=== PATIENT | female | born 1940 | race Caucasian/White ===

== ENCOUNTER 2023-01-12 21:48 | Outpatient (REF) | payer MEDICARE, SELFPAY | END 2023-01-12 21:49 | disposition home or self-care (01) | LOC: LBN 21:48 | PROVIDERS: PCP Student in an Organized Health Care Education/Training Program; Visit Provider Physician Assistant | DX: N39.0 Urinary tract infection, site not specified (principal); R82.89 Other abnormal findings on cytological and histological examination of urine | CPT/HCPCS: 87086 ==

== ENCOUNTER 2023-04-03 16:03 | Outpatient (REF) | payer MEDICARE, SELFPAY ==
[2023-04-03 19:43] LABS: Bacteria Rare HPF (Negative); C & S Indicated? Yes; Casts Negative LPF (Negative); Crystals Mod Calcium Oxalate HPF (Negative); Epithelial Cells Rare HPF (Negative); Mucus Negative (Negative)
== END 2023-04-03 16:04 | disposition home or self-care (01) ==
LOC: LBN 16:03
PROVIDERS: PCP Student in an Organized Health Care Education/Training Program; Visit Provider Student in an Organized Health Care Education/Training Program
DX: N39.0 Urinary tract infection, site not specified (principal); R35.1 Nocturia; R53.83 Other fatigue
CPT/HCPCS: 81015; 87086

== ENCOUNTER → 2023-04-10 13:05 | Outpatient (BNVA) | payer MEDICARE, SELFPAY | PROVIDERS: PCP Student in an Organized Health Care Education/Training Program; Referring Provider Student in an Organized Health Care Education/Training Program; Visit Provider Nurse Practitioner Gerontology | DX: N32.81 Overactive bladder (principal); N39.46 Mixed incontinence; Z87.440 Personal history of urinary (tract) infections | CPT/HCPCS: 51798; 99205 ==

== ENCOUNTER 2023-05-09 14:03 | Outpatient (CLI) | payer MEDICARE, SELFPAY ==
[2023-05-09 14:13] VITALS: BP 150/65; PULSE 66; RESP 20; TEMP 36.7; O2SAT 96
--- NOTE | 2023-05-09 14:57 | DI.RAD_ITS ---
Exam(s) XR PAIN CLINIC LUMBAR SP 2V EXAM: XR PAIN CLINIC LUMBAR SP 2V CLINICAL HISTORY: DX: Lumbar spondylosis TECHNIQUE: 2D and realtime digital imaging was performed. CONTRAST MATERIAL: Refer to procedure report. COMPARISON: No exams were available for comparison FINDINGS: Fluoroscopy was provided for Dr. Mcdowell during the performance of a bilateral medial branch block. Pl ease refer to the procedure report for complete details. Ka,r=7.71 mGy IMPRESSION:
[2023-05-09 15:00] VITALS: BP 171/95; PULSE 82; RESP 13; O2SAT 100
--- NOTE | 2023-05-09 15:01 | PDOC.PAIN ---
Date of service: 05/09/23 Time of Service: 15:01 Pain Managment Procedure Note Procedure Note Procedure Note: PROCEDURE NOTE Bilateral Lumbar Medial Branch Blocks Date of Service: May 09, 2023 Patient: Candy Amaro Provider: Efren Mcdowell DO, MPH Candy Amaro has been [facility] to [facility] for lumbar medial branch blocks. Pre-operative diagnosis: Lumbar Spondylosis without Myelopathy Post-operative diagnosis: Same Pre-procedure pain: VAS= 6/10 COMMENTS: I previously evaluated the patient in the clinic. Candy? was interviewed and the medical records were reviewed. There were no medical, pharmacologic, radiographic or other structural contraindications to attempting fluoroscopically guided local anesthetic lumbar medial branch blocks. Risks and potential side effects were discussed. I also discussed the potential benefit(s) of the procedure with Candy, and voiced concerns were addressed. After Candy was completely informed about the procedure, the printed consent form was signed. A standard time-out procedure was performed. Candy was placed in the prone position on the fluoroscopy table. Automated blood pressure cuff and pulse oximeter were applied. The skin entry points for approaching the anatomic target points of the segmental medial branches of bilateral L3,L4,L5 were identified with fluoroscopy and marked. The skin at the target site area was thoroughly prepared with Chlorhexadine. The skin was then draped. Next, a 25 gauge 3.5 spinal needle was placed under fluoroscopic guidance down on to the target point (the articular pillar) for each respective segmental medial branch. Position was confirmed in A/P and lateral views. Aspiration revealed no blood or clear fluid. Next, 0.25ml of omnipaque 240 was injected at each level. No contrast following a vascular or neural pattern was visualized under continuous fluoroscopy. Next, 0.25 ml of preservative-free 0.5% bupivicaine was injected at each level. There was no unusual discomfort expressed by Candy. The needles were withdrawn without difficulty. (49 mls of Omnipaque was wasted) Candy was observed and was without hemodynamic, neurologic, or allergic reactions.? Fluoroscopic images were digitally archived. Provacative testing using the Modified Hoyt's facet loading test- Left side Right Side Directly before the block VAS (0-10) = 6/10 VAS (0-10) = 6/10 Five minutes after the block VAS (0-10) = 2/10 VAS (0-10) = 2/10 Percentage relief obtained with this diagnostic block 80% 80% Any improved physical functioning directly after the blocks? Able to move much better. Follow up plans and appointments were discussed with Candy. Candy was instructed to keep careful note of how the usual pain was modified by these injections. Specifically, to keep a pain diary for the next 4 hours using a numeric pain scale of 0-10 and report these results. Post procedure instruction was given as documented in the nursing documentation and having met discharge criteria, the patient was [facility]. Based on the medial branches blocked today, if they patient has adequate relief and we are able to proceed to radiofrequency ablation, the treatment should result in the denervation of the bilateral L4-L5 and L5-S1 facet joints. We would expect to denervate a total of 4 facets during the radiofrequency ablation. COMMENTS: No apparent complications. Post-procedure pain: VAS= 2/10 Candy will call back with 0-4 hour post-procedure pain scores. I personally performed the entire procedure. EFREN MCDOWELL DO, MPH ABPM&R-subspecialty board certification in Pain Medicine [facility] [facility]
[2023-05-09] MEDS: Bupivacaine 0.5% Pres-Free 10 ML VIAL IJ (15:03)
[2023-05-09] MEDS: Nerve Block Tray 1 EACH MC (15:03)
[2023-05-09] MEDS: Omnipaque 240 MG/ML 50 ML BTL IJ (15:04)
== END 2023-05-09 14:04 | disposition home or self-care (01) ==
LOC: PC 14:03
PROVIDERS: PCP Student in an Organized Health Care Education/Training Program; Visit Provider Preventive Medicine Occupational Medicine
DX: M54.50 Low back pain, unspecified (principal); M47.816 Spondylosis without myelopathy or radiculopathy, lumbar region
CPT/HCPCS: 123; 64493; 64494; 72100; 00123; J0665; Q9967

== ENCOUNTER → 2023-05-17 15:31 | Outpatient (BNVA) | payer MEDICARE, SELFPAY | PROVIDERS: PCP Student in an Organized Health Care Education/Training Program; Referring Provider Student in an Organized Health Care Education/Training Program; Visit Provider Nurse Practitioner Gerontology | DX: N39.46 Mixed incontinence (principal); N39.0 Urinary tract infection, site not specified; R30.0 Dysuria | CPT/HCPCS: 81003; 99213 ==

== ENCOUNTER 2023-05-17 16:05 | Outpatient (REF) | payer MEDICARE, SELFPAY | END 2023-05-17 16:06 | disposition home or self-care (01) | LOC: LBN 16:05 | PROVIDERS: PCP Student in an Organized Health Care Education/Training Program; Visit Provider Nurse Practitioner Gerontology | DX: R30.0 Dysuria (principal); N39.0 Urinary tract infection, site not specified; N39.46 Mixed incontinence; B96.22 Other specified Shiga toxin-producing Escherichia coli [E. coli] [STEC] as the cause of diseases classified elsewhere | CPT/HCPCS: 87077; 87086; 87186 ==

== ENCOUNTER → 2023-06-19 14:27 | Outpatient (BNVA) | payer MEDICARE, SELFPAY | PROVIDERS: PCP Student in an Organized Health Care Education/Training Program; Referring Provider Student in an Organized Health Care Education/Training Program; Visit Provider Nurse Practitioner Gerontology | DX: N39.46 Mixed incontinence (principal); Z87.440 Personal history of urinary (tract) infections | CPT/HCPCS: 51798; 81003; 99213 ==

== ENCOUNTER 2023-06-20 11:02 | Outpatient (CLI) | payer MEDICARE, SELFPAY ==
[2023-06-20 11:12] VITALS: BP 144/69; PULSE 65; RESP 20; TEMP 36.7; O2SAT 95
[2023-06-20 11:47] VITALS: BP 162/98; PULSE 80; RESP 13; O2SAT 99
--- NOTE | 2023-06-20 11:47 | DI.RAD_ITS ---
Exam(s) XR PAIN CLINIC LUMBAR SP 2V EXAM: XR PAIN CLINIC LUMBAR SP 2V CLINICAL HISTORY: DX: Lumbar spondylosis. TECHNIQUE: Fluoroscopy was provided for the referring physician for guidance with performing pain cl inic injection procedure. COMPARISON: No exams were available for comparison FINDINGS: Please see procedure note for details. Fluoro time: 44.7 seconds RADIATION DOSE DELIVERED: delvis Shepard=9.19 mGy
[2023-06-20] MEDS: Nerve Block Tray 1 EACH MC (11:49)
[2023-06-20] MEDS: Bupivacaine 0.5% Pres-Free 10 ML VIAL IJ (11:49)
[2023-06-20] MEDS: Omnipaque 240 MG/ML 50 ML BTL IJ (11:49)
--- NOTE | 2023-06-20 12:50 | PDOC.PAIN ---
Date of service: 06/20/23 Time of Service: 12:50 Pain Managment Procedure Note Procedure Note Procedure Note: PROCEDURE NOTE Bilateral Lumbar Medial Branch Blocks Date of Service: June 20, 2023 Patient: Candy Amaro Provider: Efren Mcdowell DO, MPH Candy Amaro has been referred to the [facility] for lumbar medial branch blocks. Pre-operative diagnosis: Lumbar Spondylosis without Myelopathy Post-operative diagnosis: Same Pre-procedure pain: VAS= 6/10 COMMENTS: She did very well with her first LMBB Candy? was interviewed and the medical records were reviewed. There were no medical, pharmacologic, radiographic or other structural contraindications to attempting fluoroscopically guided local anesthetic lumbar medial branch blocks. Risks and potential side effects were discussed. I also discussed the potential benefit(s) of the procedure with Candy, and voiced concerns were addressed. After Candy was completely informed about the procedure, the printed consent form was signed. A standard time-out procedure was performed. Candy was placed in the prone position on the fluoroscopy table. Automated blood pressure cuff and pulse oximeter were applied. The skin entry points for approaching the anatomic target points of the segmental medial branches of bilateral L3,L4,L5 were identified with fluoroscopy and marked. The skin at the target site area was thoroughly prepared with Chlorhexadine. The skin was then draped. Next, a 25 gauge 3.5 spinal needle was placed under fluoroscopic guidance down on to the target point (the articular pillar) for each respective segmental medial branch. Position was confirmed in A/P and lateral views. Aspiration revealed no blood or clear fluid. Next, 0.25ml of omnipaque 240 was injected at each level. No contrast following a vascular or neural pattern was visualized under continuous fluoroscopy. Next, 0.25 ml of preservative-free 0.5% bupivicaine was injected at each level. There was no unusual discomfort expressed by Candy. The needles were withdrawn without difficulty. (49 mls of Omnipaque was wasted) Candy was observed and was without hemodynamic, neurologic, or allergic reactions.? Fluoroscopic images were digitally archived. Provacative testing using the Modified Hoyt's facet loading test- Left side Right Side Directly before the block VAS (0-10) = 6/10 VAS (0-10) = 6/10 Five minutes after the block VAS (0-10) = 1/10 VAS (0-10) = 1/10 Percentage relief obtained with this diagnostic block 90% 90% Any improved physical functioning directly after the blocks? Able to move with little difficulty. Follow up plans and appointments were discussed with Candy. Candy was instructed to keep careful note of how the usual pain was modified by these injections. Specifically, to keep a pain diary for the next 4 hours using a numeric pain scale of 0-10 and report these results. Post procedure instruction was given as documented in the nursing documentation and having met discharge criteria, the patient was [facility] from the [facility]. Based on the medial branches blocked today, if they patient has adequate relief and we are able to proceed to radiofrequency ablation, the treatment should result in the denervation of the bilateral L4-L5 and L5-S1 facet joints. We would expect to denervate a total of 4 facets during the radiofrequency ablation. COMMENTS: No apparent complications. Post-procedure pain: VAS= 1/10 Candy will call back with 0-4 hour post-procedure pain scores. I personally performed the entire procedure. EFREN MCDOWELL DO, MPH ABPM&R-subspecialty board certification in Pain Medicine [facility] [facility]
== END 2023-06-20 11:03 | disposition home or self-care (01) ==
LOC: PC 11:02
PROVIDERS: PCP Student in an Organized Health Care Education/Training Program; Visit Provider Preventive Medicine Occupational Medicine
DX: M54.50 Low back pain, unspecified (principal); M47.816 Spondylosis without myelopathy or radiculopathy, lumbar region
CPT/HCPCS: 00123; 64493; 64494; 72100; J0665; Q9967

== ENCOUNTER 2023-07-11 08:12 | Outpatient (CLI) | payer MEDICARE, SELFPAY ==
[2023-07-11 08:29] VITALS: BP 148/68; PULSE 65; RESP 20; TEMP 36.7; O2SAT 98
--- NOTE | 2023-07-11 09:52 | PDOC.PAIN ---
Date of service: 07/11/23 Time of Service: 09:52 Pain Managment Procedure Note Procedure Note Procedure Note: PROCEDURE NOTE BILATERAL LUMBAR RADIOFREQUENCY ABLATION Date of Service: July 11, 2023 Patient:? Candy Amaro? Provider:? Efren Mcdowell DO, MPH Candy Amaro has been referred to the [facility] for Bilateral Lumbar Radiofrequency Ablation with the [employer] Machine.? Pre Operative Diagnosis: Lumbosacral Spondylosis without Myelopathy Post Operative Diagnosis: Same Pre procedure pain; VAS= 7/10 Comments: She did very well with her two LMBBs PROCEDURE: Radiofrequency Ablation of medial branches - bilateral L3, L4, L5 and lateral branches of bilateral S1. Candy?was interviewed and the medical record was reviewed.? There were no medical, pharmacologic, radiographic or other structural contraindications to attempting fluoroscopically guided BILATERAL Lumbar Radiofrequency Ablation.?Risks and expected side effects as well as potential benefit of the procedure were reviewed with Candy, and the patient's voiced concerns were addressed.? The printed consent form was signed.? Standard time-out procedure was performed. Candy was brought into the fluoroscopy suite and positioned into the prone position on the fluoroscopy table and allowed to adjust to a position of comfort. A grounding pad was placed on the left abdomen. The sterile field was prepared using chlorhexidine preparation of the skin and sterile draping. Local anesthesia superficial and deep was provided by local infiltration of 2% lidocaine. A 17g 100 mm radiofrequency introducer needle was placed to the planned anatomic targets guided with intermittent fluoroscopy with a perpendicular approach to terminally place at the junction of the superior articular process and the transverse process of the bilateral L4, L5, the base of the sacral ala on the bilateral for the L5 medial branch nerve and the area between base of the sacral ala to the S1 foramen bilaterally. The stylets were removed and radiofrequency probes with a 4mm active tip were then inserted. Needle tip position of the probes was verified in the AP, oblique, and lateral views. At each site, the medial branch nerve was stimulated at 2 Hz to a maximum 1-2 volts determined to finalize safe needle and electrode placement. The patient was awake and responsive during this portion of the procedure. Each target was anesthetized with 1-2 mL of 2 % Lidocaine for anesthesia for lesioning and then each target was lesioned at 80 degrees Celsius for 2 minutes and 30 seconds. Tissue impedances were noted to be between 250 and 500 Ohms. There was no unusual discomfort expressed by Candy. The needles were withdrawn without difficulty and bandages placed over the needle placement sites, the patient was observed and was without hemodynamic, neurologic, or allergic reactions. Fluoroscopic images were digitally archived. POST PROCEDURE EVALUATION: IMPRESSION: 1. Summary of procedure. Medication given is documented in the MAR. 2. Follow up plan: Candy to contact [facility] as needed.?This procedure may be repeated if the patient achieves at least 50% improvement in pain/function for at least 6 months. 3. Estimated Blood Loss: <5 mls 4. Fluoroscopy time: Documented in the EMR. Follow up plans and appointments were discussed with the Candy. Post procedure instruction was given as documented in nursing documentation and having met discharge criteria, Candy was discharged from the [facility]. COMMENTS: No apparent complications. Post-procedure pain: VAS= 0/10. I personally completed the entire procedure. EFREN MCDOWELL DO, MPH ABPM&R - Subspecialty board certification in Pain Medicine [facility] [facility]
--- NOTE | 2023-07-11 09:55 | DI.RAD_ITS ---
Exam(s) XR PAIN CLINIC LUMBAR SP 2V EXAM: XR PAIN CLINIC LUMBAR SP 2V CLINICAL HISTORY: Dx: Lumbar Spondylosis. TECHNIQUE: Fluoroscopy was provided for the referring physician for guidance with performing pain cl inic injection procedure. COMPARISON: No exams were available for comparison FINDINGS: Please see procedure note for details. Fluoro time: 72.8 seconds RADIATION DOSE DELIVERED: delvis Shepard=15.29 mGy
[2023-07-11] MEDS: Lactated Ringers 500 ML 80 ML IV (09:56)
[2023-07-11] MEDS: fentaNYL 100 MCG/2 ML VIAL IVP (09:56)
[2023-07-11] MEDS: Midazolam 2 MG/2 ML VIAL IVP (09:57)
[2023-07-11] MEDS: Bupivacaine 0.5% Pres-Free 10 ML VIAL IJ (09:57)
[2023-07-11] MEDS: methylPREDNISolone ACETATE 40 MG/ML VIAL IJ (09:58)
[2023-07-11] MEDS: Lidocaine 2% Pres-Free 5 ML VIAL IJ (09:58)
[2023-07-11 10:06] VITALS: BP 177/93; PULSE 82; RESP 13; O2SAT 97
[2023-07-11] MEDS: Nerve Block Tray 1 EACH MC (10:10)
== END 2023-07-11 08:13 | disposition home or self-care (01) ==
LOC: PC 08:13
PROVIDERS: PCP Student in an Organized Health Care Education/Training Program; Visit Provider Preventive Medicine Occupational Medicine
DX: M47.817 Spondylosis without myelopathy or radiculopathy, lumbosacral region (principal); M54.50 Low back pain, unspecified
CPT/HCPCS: 64635; 64636; 72100; J0665; J1010; J2250; J3010

== ENCOUNTER 2023-07-31 15:45 | Outpatient (REF) | payer MEDICARE, SELFPAY ==
[2023-07-31 19:06] LABS: Abs Immature Grans 0.04 10^3/uL (0.0-0.06); Absolute Basophil Count 0.08 10^3/uL (0.0-0.2); Absolute Eosinophil Count 0.54 10^3/uL (0.0-0.7); Absolute Monocyte Count 0.81 10^3/uL (0.1-0.8); Absolute Neutrophil Count 5.26 10^3/uL (1.2-6.7); Basophils % 0.8 %; Eosinophils % 5.7 %; HCT 40.2 % (36.0-46.0); HGB 12.5 g/dL (11.2-15.7); Immature Grans % 0.4 %; Lymphocytes % 29.4 %; MCHC 31.1 % (32.0-36.0); MCV 84 fL (80-95); MPV 9.9 fL (8.0-11.0); Monocytes % 8.5 %; Neutrophils % 55.2 %; Platelet Count 283 10^3/uL (130-400); RBC 4.81 10^6/uL (3.93-5.22); RDW 15.1 % (11.7-14.6); RDW-SD 45.9 fL; WBC 9.53 10^3/uL (4.4-10.8)
[2023-07-31 19:45] LABS: ALT 21 U/L (14-59); AST 15 U/L (15-37); Albumin 3.9 g/dL (3.4-5.0); Alkaline Phosphatase 81 U/L (46-116); Anion Gap 7.4 mmol/L (3-11); BUN 28 mg/dL (7-18); Bilirubin, Total 0.4 mg/dL (0.2-1.0); CO2 29.6 mmol/L (21.0-32.0); CREATININE 0.8 mg/dL (0.55-1.02); Calcium 9.4 mg/dL (8.5-10.1); Chloride 105 mmol/L (98-107); Estimated GFR 73.06 (mL/min/1.73m2); Glucose 110 mg/dL (74-106); Potassium 4.7 mmol/L (3.5-5.1); Sodium 142 mmol/L (136-145); TSH (W/Ref FT4) 1.46 uIU/mL (0.36-3.74); Vitamin B12 1088 pg/mL (193-986)
[2023-07-31 20:42] LABS: Vitamin D 25 Total 56.4 ng/mL (30-100)
== END 2023-07-31 15:46 | disposition home or self-care (01) ==
LOC: LBN 15:45
PROVIDERS: PCP Student in an Organized Health Care Education/Training Program; Visit Provider Nurse Practitioner
DX: R31.29 Other microscopic hematuria (principal); E55.9 Vitamin D deficiency, unspecified; R53.83 Other fatigue; B96.89 Other specified bacterial agents as the cause of diseases classified elsewhere; B96.20 Unspecified Escherichia coli [E. coli] as the cause of diseases classified elsewhere
CPT/HCPCS: 80053; 82306; 87077; 82607; 84443; 85025; 87086; 87186

== ENCOUNTER → 2023-08-08 08:02 | Outpatient (BNVA) | payer MEDICARE, SELFPAY | PROVIDERS: PCP Student in an Organized Health Care Education/Training Program; Referring Provider Student in an Organized Health Care Education/Training Program; Visit Provider Nurse Practitioner Gerontology | DX: N39.46 Mixed incontinence (principal) | CPT/HCPCS: 51798; 81003; 99213 ==

== ENCOUNTER → 2023-09-03 03:49 | Outpatient (CLI) | payer MEDICARE, SELFPAY ==
--- NOTE | 2023-09-03 11:42 | DI.RAD_ITS ---
Exam(s) XR RIBS LT W PA LAT CHEST EXAM: XR RIBS LT W PA LAT CHEST CLINICAL HISTORY: ? thoracic vert COMPRESSION or rib injury,lt pain around rib 10,back pain. TECHNIQUE: 2D digital imaging was performed. COMPARISON: No exams were available for comparison FINDINGS: Left rib cage-four views: There are no liver rib fractures identified. No osseous lesions. Chest x-ray: 2 views Heart size normal mediastinum is not widened. No pneumothorax. No obvious fractures. There is interposition of colon hepatic flexure between the hemidiaphragm and liver. This accounts for the air subjacent to the right hemidiaphragm and slight e levation of the right hemidiaphragm. There are no infiltrates nor pleural effusions. IMPRESSION: No acute pulmonary findings. DATA REPOSITORY: RADIATION DOSE DELIVERED:
--- NOTE | 2023-09-03 11:42 | DI.RAD_ITS ---
Exam(s) XR THORACIC SPINE COMPLETE EXAM: XR THORACIC SPINE COMPLETE CLINICAL HISTORY: ? thoracic vert compression,back pain,m54.9. TECHNIQUE: 2D digital imaging was performed. COMPARISON: No exams were available for comparison FINDINGS: 3 views There is no evidence of compression fracture nor listhesis. No scoliosis. No abnormal widening of t he paraspinal lines. No obvious osseous lesions in the thoracic vertebrae. IMPRESSION: No acute osseous findings in the thoracic vertebrae. DATA REPOSITORY: RADIATION DOSE DELIVERED:
== END ==
PROVIDERS: PCP Student in an Organized Health Care Education/Training Program; Visit Provider Student in an Organized Health Care Education/Training Program
DX: M48.04 Spinal stenosis, thoracic region; M51.36 Other intervertebral disc degeneration, lumbar region; Z98.890 Other specified postprocedural states
CPT/HCPCS: 71046; 71100; 72072

== ENCOUNTER → 2023-10-19 00:12 | Outpatient (CLI) | payer MEDICARE, SELFPAY ==
--- NOTE | 2023-10-19 13:30 | DI.US_ITS ---
APPROVED REPORT EXAM: Comprehensive 2D, Doppler, and color-flow Echocardiogram Patient Location: Out-Patient Distribution Analyst: Reece Sandhu RDCS (AE) Indications: Evaluate heart function, edema, fatigue Conclusion Normal left ventricular wall thickness and chamber size. Ejection fraction is 55%. Wall motion is n ormal Normal right ventricular size and function Both atria are normal in size There is no structural or hemodynamically significant valvular disease Estimated right ventricular systolic pressure is 30 mmHg Wall motion Left Ventricle The left ventricle is normal size. The left ventricular systolic function is normal. The left ventric ular ejection fraction is within the normal range. There is normal left ventricular wall thickness. T here is normal LV segmental wall motion. There is no ventricular septal defect visualized. LVEF is 55 %. Right Ventricle The right ventricle is normal size. The right ventricular systolic function is normal. Atria The left atrium size is normal. The right atrium size is normal. The interatrial septum is intact wit h no evidence for an atrial septal defect. Aortic Valve The aortic valve is not well visualized. There is no aortic valvular stenosis. No aortic regurgitatio n is present. Mitral Valve The mitral valve is normal in structure. No evidence of mitral valve stenosis. Trace mitral regurgita tion. Tricuspid Valve The tricuspid valve is normal in structure. There is no tricuspid valve stenosis. Mild tricuspid regu rgitation. The RVSP is 30.3 mmHg. Pulmonic Valve Pulmonic valve is not well visualized. Great Vessels The aortic root is normal in size. The ascending aorta is normal in size. Aortic arch is normal in ca liber. IVC is normal in size and collapses >50% with inspiration. Pericardium There is no pericardial effusion. 2D Dimensions IVSD d PLAX 0.67 cm F: 0.6-1.0 Ao Root d 2.67 cm F: 2.7 - 3.3 LVPW d PLAX 0.69 cm F: 0.6 - 1.0 Ao Asc Diam d 2.43 cm F: 2.3 - 3.1 LVID d PLAX 4.08 cm F: 3.8 - 5.2 LVDs 2.98 cm F: 2.2 - 3.5 LV EF Teichholz 53.1 % FS 27.00 % LV EDV (Teich) 73.2 mL LV ESV (Teich) 34.3 mL Stroke Vol Index (Teich) 23.70 M-Mode TAPSE 2.04 cm (M/F) >1.7 Auto EF LV EDV A4C 54.4 mL LV EDV A2C 74.4 mL LV EDV BP 63.3 mL LV ESV A4C 26.0 mL LV ESV A2C 35.1 mL LV ESV BP 29.2 mL LVEF(%) A4C 52.1 % LVEF(%) A2C 52.9 % LVEF(%) BP 53.8 % LV SV A4C 28.3 ml LV SV A2C 39.4 ml LV SV BP 34.1 ml LV CO A4C 2.2 L/min LV CO A2C 3.0 L/min LV CO BP 2.6 L/min HR A4C 76.43 BPM HR A2C 75.47 BPM LV EDV Index (BP) LA Volume LA Length A4C 3.0 cm LA Length A2C 3.4 cm LA Area A4C s 6.47 cm2 LA Area A2C s 8.15 cm2 LA Vol A4C A-L 11.98 mL LA Vol A2C A-L 16.57 mL LA Vol Biplane A-L 15.1 mL LA Vol/BSA A4C A-L LA Vol/BSA A2C A-L LA Vol/BSA BP A-L 9.2 mL/m2 LA Vol A4C MOD 11.5 mL LA Vol A2C MOD 14.6 mL LA Vol BP MOD 13.8 mL RA Volume RA Area A4C 7.9 cm2 RA ESV A4C (A-L) 14.3mL RA Vol/BSA A4C A-L RA Length A4C 3.7 cm RA ESV A4C (MOD) 13.8mL LV Diastology MV E' medial 0.080 (>0.07 m/s) MV E Vmax 0.62 (0.4-1.3 m/s) MV E/E' MED 7.68 (<14) MV A Vmax 1.20 (0.4-1.3 m/s) MV E' lateral 0.077 (>0.1 m/s) E/A Ratio 0.5 MV E/E' LAT 8.00 (<14) MV E' Average 0.079 m/s MV E/E'(average) 7.84 Aortic Valve AoV Vmax 1.15 m/s LVOT Vmax 0.90 m/s AoV Peak Grad 5.3 mmHg LVOT Peak Grad 3.3 mmHg AoV Area (Vmax) 2.04 cm2 LVOT VTI 0.194 m AoV VTI 0.253 m LVOT Mean Grad 1.7 mmHg AoV Mean Christofer. 0.83 m/s LVOT SV 50.51 mL AoV Mean Grad 3.1 mmHg LVOT Diam s 1.80 cm AoV Area (VTI) 2.00 cm2 AV Regurg Peak Gr. 5.31 mmHg Velocity Ratio 0.78 Mitral Valve MV DT 339 (160-240 msec) MV Vmax TIPS 1.12 m/s MV Mean Grad 1.7 (<2mmHg) MV VTI 0.288 m Tricuspid Valve RA Pressure 3.00 mmHg TR Vmax 2.61 m/s TR Peak Grad 27.2 mmHg RVSP (TR) 30.3 mmHg
== END ==
PROVIDERS: PCP Student in an Organized Health Care Education/Training Program; Visit Provider Student in an Organized Health Care Education/Training Program
DX: R60.9 Edema, unspecified (principal); R53.83 Other fatigue
CPT/HCPCS: 93306

== ENCOUNTER 2023-11-21 01:45 | Outpatient (CLI) | payer MEDICARE, SELFPAY ==
--- NOTE | 2023-11-21 07:30 | DI.MAMMO_ITS ---
Exam(s) MG MAMMO SCREENING 60 MIN DUR EXAM: MG MAMMO SCREENING 60 MIN DUR CLINICAL HISTORY: breast cancer screening,z12.31. TECHNIQUE: Bilateral full field digital CC and MLO mammographic images were obtained with 3D tomosyn thesis and utilizing computer aided detection (CAD). COMPARISON: None. This patient cannot remember where her prior mammograms more performed. FINDINGS: Fibroglandular tissue pattern is moderately dense There are no significant radiograph findings in left breast. Benign-appearing benign-appearing nodule in the right breast are noted. There is no significant architectural distortion nor skin thickening-retraction. IMPRESSION: Benign findings. No radiographic evidence of malignancy. BI-RADS Category 2 - Benign Findings Breast Density - Category C - Heterogeneously dense Breast density Category C or D implies that the patient has dense breast tissue. Dense breast tissue can make it harder to find cancer on a mammogram. Dense breast tissue is also associated with an incr eased risk of breast cancer. This information about the result of the mammogram report was provided to the patient to raise their awareness. Use this report when you speak with the patient about their risks for breast cancer, which includes their family history. At that time, you may recommend additional screening tests (Ultrasoun d or MRI) as these tests may add significant information. A negative radiographic report should not delay biopsy if a dominant or clinically suspicious mass is present. Up to ten percent of cancers are not identified on mammography. A negative report may reinforce clinical impression. Adenosis and dense breasts may obscure an underlying neoplasm. False positive reports average 6 to 10%. Patient will receive a letter notifying them of these results.
== END 2023-11-21 02:05 ==
LOC: DI 01:45
PROVIDERS: PCP Student in an Organized Health Care Education/Training Program; Visit Provider Student in an Organized Health Care Education/Training Program
DX: Z12.31 Encounter for screening mammogram for malignant neoplasm of breast (principal)
CPT/HCPCS: 77063; 77067

== ENCOUNTER → 2023-11-28 13:13 | Outpatient (BNVA) | payer MEDICARE, SELFPAY | PROVIDERS: PCP Student in an Organized Health Care Education/Training Program; Visit Provider Nurse Practitioner Gerontology | DX: N39.46 Mixed incontinence (principal) | CPT/HCPCS: 51798; 99213 ==

== ENCOUNTER 2023-12-04 14:05 | Outpatient (CLI) | payer MEDICARE, SELFPAY ==
--- NOTE | 2023-12-04 14:00 | RT.EKG_ITS ---
APPROVED REPORT Exam: Resting ECG Reason for Exam: HTN Patient Location: O HR:68 bpm ECG Measurements Heart Rate 68 AXIS AL 151 P 39 QRSd 134 QRS -29 QT 411 T 95 QTc 438 Conclusion Sinus rhythm...normal P axis, V-rate 50- 99 Left bundle branch block...QRSd>120, broad/notched R
== END 2023-12-04 14:06 | disposition home or self-care (01) ==
LOC: DI.CARD 14:10
PROVIDERS: PCP Student in an Organized Health Care Education/Training Program; Referring Provider Student in an Organized Health Care Education/Training Program; Visit Provider Internal Medicine Cardiovascular Disease
DX: I44.7 Left bundle-branch block, unspecified (principal); I10 Essential (primary) hypertension
CPT/HCPCS: 93010

== ENCOUNTER → 2023-12-04 14:05 | Outpatient (BNVA) | payer MEDICARE, SELFPAY | PROVIDERS: PCP Student in an Organized Health Care Education/Training Program; Referring Provider Student in an Organized Health Care Education/Training Program; Visit Provider Internal Medicine Cardiovascular Disease | DX: I44.7 Left bundle-branch block, unspecified (principal); I10 Essential (primary) hypertension | CPT/HCPCS: 93005; 99214 ==

== ENCOUNTER 2023-12-13 14:56 | Outpatient (REF) | payer MEDICARE, SELFPAY | END 2023-12-13 14:57 | disposition home or self-care (01) | LOC: LBN 14:56 | PROVIDERS: PCP Student in an Organized Health Care Education/Training Program; Visit Provider Nurse Practitioner Family | DX: R82.998 Other abnormal findings in urine (principal); R31.9 Hematuria, unspecified; R35.0 Frequency of micturition; B96.20 Unspecified Escherichia coli [E. coli] as the cause of diseases classified elsewhere | CPT/HCPCS: 87077; 87086; 87186 ==

== ENCOUNTER → 2024-01-17 15:25 | Outpatient (BNVA) | payer MEDICARE, SELFPAY | PROVIDERS: PCP Student in an Organized Health Care Education/Training Program; Referring Provider Student in an Organized Health Care Education/Training Program; Visit Provider Nurse Practitioner Gerontology | DX: N39.46 Mixed incontinence (principal); R35.0 Frequency of micturition; Z87.440 Personal history of urinary (tract) infections | CPT/HCPCS: 51798; 81003; 99214 ==

== ENCOUNTER 2024-01-17 17:07 | Outpatient (REF) | payer MEDICARE, SELFPAY | END 2024-01-17 17:08 | disposition home or self-care (01) | LOC: LBN 17:07 | PROVIDERS: PCP Student in an Organized Health Care Education/Training Program; Visit Provider Nurse Practitioner Gerontology | DX: Z87.440 Personal history of urinary (tract) infections (principal); R39.9 Unspecified symptoms and signs involving the genitourinary system; R35.0 Frequency of micturition | CPT/HCPCS: 87077; 87086; 87186 ==

== ENCOUNTER → 2024-02-06 09:03 | Outpatient (BNVA) | payer MEDICARE, SELFPAY | PROVIDERS: PCP Student in an Organized Health Care Education/Training Program; Referring Provider Student in an Organized Health Care Education/Training Program; Visit Provider Nurse Practitioner Gerontology | DX: R35.0 Frequency of micturition (principal); N32.81 Overactive bladder; N39.0 Urinary tract infection, site not specified | CPT/HCPCS: 99442 ==

== ENCOUNTER → 2024-02-12 14:05 | Outpatient (BNVA) | payer MEDICARE, SELFPAY | PROVIDERS: PCP Student in an Organized Health Care Education/Training Program; Referring Provider Nurse Practitioner Family; Visit Provider Nurse Practitioner Adult Health | DX: R41.89 Other symptoms and signs involving cognitive functions and awareness (principal) | CPT/HCPCS: 99215 ==

== ENCOUNTER 2024-03-03 01:36 | Outpatient (CLI) | payer MEDICARE, SELFPAY ==
--- NOTE | 2024-03-03 06:00 | DI.MRI_ITS ---
Exam(s) MR BRAIN WO EXAM: MR BRAIN WO CLINICAL HISTORY: memory changes,cognitive impairment,r41.89 TECHNIQUE: Multiplanar multisequence MRI of the brain was performed. COMPARISON: None FINDINGS: CEREBRAL PARENCHYMA: There is no evidence of intracranial hemorrhage, mass effect, or shift of midline structures. There are no extra-axial fluid collections. Lateral ventricles are slightly prominent in size. There is no significant focal signal abnormality in the cerebellar hemispheres nor within the sierra, m idbrain, and thalami. There is patchy FLAIR bright signal abnormality the Ruth Ann in supra ventricular white matter not associ ated with hemorrhage, surrounding edema, nor restricted diffusion and consistent with chronic small v essel disease. There is no significant focal signal abnormality evident on diffusion imaging to suggest acute ischem ic event. PITUITARY GLAND: No mass nor parasellar abnormality. No obvious abnormality in the cavernous sinuses. FLOW VOIDS: The expected flow void are noted. No evidence of obvious aneurysm nor obvious vascular ma lformation. PARANASAL SINUSES: The visualized paranasal sinuses appear unremarkable. No obvious finding ORBITS: No obvious acute findings. IMPRESSION: There is periventricular signal abnormality consistent with chronic small vessel disease. No evidenc e of acute infarct. Slightly prominent size of the lateral ventricles, possibly commensurate with size of the overlying c ortical sulci. Correlation with any clinical signs of normal pressure hydrocephalus recommend. DATA REPOSITORY:
== END 2024-03-03 01:56 ==
LOC: DI 01:36
PROVIDERS: PCP Student in an Organized Health Care Education/Training Program; Visit Provider Nurse Practitioner Adult Health
DX: I25.85 Chronic coronary microvascular dysfunction (principal)
CPT/HCPCS: 70551

== ENCOUNTER → 2024-03-24 10:30 | Outpatient (BNVA) | payer MEDICARE, SELFPAY | PROVIDERS: PCP Student in an Organized Health Care Education/Training Program; Referring Provider Student in an Organized Health Care Education/Training Program; Visit Provider Nurse Practitioner Gerontology | DX: N39.46 Mixed incontinence (principal); Z87.440 Personal history of urinary (tract) infections; R31.29 Other microscopic hematuria; R39.9 Unspecified symptoms and signs involving the genitourinary system | CPT/HCPCS: 51798; 81003; 99214 ==

== ENCOUNTER 2024-04-01 01:15 | Outpatient (CLI) | payer MEDICARE, SELFPAY ==
--- NOTE | 2024-04-01 07:30 | DI.MRI_ITS ---
Exam(s) MR CERVICAL SPINE WO EXAM: MR CERVICAL SPINE WO CLINICAL HISTORY: ? cervical stenosis on brain MRI, balance issues,M48.02,R26.89 TECHNIQUE: Multiplanar multisequence MRI of the cervical spine was performed without intravenous con trast. COMPARISON: There no prior plain films of the cervical spine available at time of this MRI interpret ation FINDINGS: CERVICOMEDULLARY JUNCTION: Intact with no evidence of cerebellar tonsillar ectopia. No obvious abnor mality of the odontoid process. No evidence of Chiari 1 malformation. CERVICAL SPINAL CORD: There is reversal of the normal curvature of the spinal column and there is mul tilevel spinal canal stenosis as described below. There is no evidence of focal cord atrophy nor foc al cord swelling nor syringomyelia. There is no prominent abnormal signal within the cervical spinal cord evident on the sagittal T2 images. OSSEOUS:Reversal normal curvature. No abnormal marrow signal to suggest significant osseous lesions. Multilevel listhesis as described below INDIVIDUAL LEVELS: C2-3: Normal disc height. No disc herniation or central canal stenosis. There are moderate degenera tive changes in the right facet joint but without significant right-sided foraminal stenosis. There are minimal degenerative changes in the left facet joint without evidence of foraminal stenosis on th e left side. C3-4: There is mild anterolisthesis of C3 upon C4, approximately 2 mm. There is relative preservatio n of disc height at this level. However, posteriorly there is annular bulging and a central subligam entous disc protrusion which extends posteriorly 2 mm and extends cephalad behind the C3 vertebral uvaldo dy for a distance of 4 mm.This disc protrusion effaces the anterior thecal sac and contacts the anter ior aspect of the cervical spinal cord at this level. This results in central canal measurement of 8 mm/mild central canal stenosis. There are advanced degenerative changes in both facet joints at this level, this causative for the mi ld anterior slippage of C3 upon C4. There is Luschka joint osteophyte-disc complex at the level the exiting left neural foramen, this resulting in moderate left-sided foraminal stenosis. There is only mild foraminal stenosis on the opposite-right side at this level. C4-5: There is only mild disc space narrowing at this level but there is approximately 3-4 mm anterol isthesis of C4 upon C5, related to facet arthropathy, this arthropathy being more prominent on the ri ght than the left side. There is mild annular bulging related to the slippage. However, there is no distinct focal disc herniation. The annular bulging does efface the anterior thecal sac, and centra l canal dimension is 9.4 mm AP. There is no prominent central canal stenosis.Small right-sided Lusch ka joint osteophyte noted. There is mild right-sided foraminal stenosis. Also mild-moderate left-si ded foraminal stenosis at this level. C5-6: This disc space exhibits chronic advanced disc space narrowing. Posteriorly there is broad campbell ular bulging and small bilateral Luschka joint osteophyte-disc complexes. There is a small posterola teral right disc protrusion at this level. This effaces the right-side of the thecal sac at this lev el and contacts the spinal cord. The AP diameter of the canal at this level is 9.5 mm. There are mo derate degenerative changes in both facet joints at this level. Mild foraminal stenosis on the left side. Also mild foraminal stenosis on the right side C6-7: This level also exhibits chronic disc space narrowing and posteriorly there is relatively symme trical annular bulging which effaces the thecal sac and results in significant central spinal canal s tenosis at this level with the AP measurement of the canal being 6.5 mm at this level. There is mild -moderate degenerative change in both facet joints. There is significant left-sided foraminal stenos is. Also significant right-sided foraminal stenosis. C7-T1: This level exhibits normal disc height with no evidence of disc herniation nor central canal s tenosis. Only mild facet joint degenerative changes and there is no foraminal stenosis on either olesya e. IMPRESSION: 1. Significant multilevel chronic degenerative disc disease findings and multilevel degenerative face t arthropathy. These findings result in multilevel mild central spinal canal stenosis but with more prominent central canal stenosis evident at C6-7 level. There is also multilevel mild-moderate nati inal stenosis as described above. 2. There is multilevel degenerative listhesis as described above and there is reversal of the normal cervical curvature. 3. There is no obvious myelitis signal in the cervical spinal cord and no evidence of focal cord atro phy nor focal cord swelling nor evidence of syringomyelia. DATA REPOSITORY:
== END 2024-04-01 01:35 ==
PROVIDERS: PCP Nurse Practitioner; Visit Provider Nurse Practitioner Adult Health
DX: M48.02 Spinal stenosis, cervical region (principal); R26.89 Other abnormalities of gait and mobility
CPT/HCPCS: 72141

== ENCOUNTER → 2024-06-02 09:48 | Outpatient (BNVA) | payer MEDICARE, SELFPAY | PROVIDERS: PCP Nurse Practitioner; Referring Provider Nurse Practitioner; Visit Provider Nurse Practitioner Gerontology | DX: N39.46 Mixed incontinence (principal); Z87.440 Personal history of urinary (tract) infections | CPT/HCPCS: 51798; 81003; 99214 ==

== ENCOUNTER → 2024-06-10 13:26 | Outpatient (BNVA) | payer MEDICARE, SELFPAY | PROVIDERS: PCP Nurse Practitioner; Referring Provider Student in an Organized Health Care Education/Training Program; Visit Provider Nurse Practitioner Adult Health | DX: G62.9 Polyneuropathy, unspecified (principal); G25.0 Essential tremor; G30.9 Alzheimer's disease, unspecified; F02.80 Dementia in other diseases classified elsewhere, unspecified severity, without behavioral disturbance, psychotic disturbance, mood disturbance, and anxiety; I10 Essential (primary) hypertension | CPT/HCPCS: 99215 ==

== ENCOUNTER → 2024-07-09 10:02 | Outpatient (BNVA) | payer MEDICARE, SELFPAY | PROVIDERS: PCP Nurse Practitioner; Referring Provider Nurse Practitioner; Visit Provider Nurse Practitioner Gerontology | DX: N39.46 Mixed incontinence (principal); Z87.440 Personal history of urinary (tract) infections; R35.1 Nocturia | CPT/HCPCS: 81003; 99214 ==

== ENCOUNTER → 2024-07-22 10:29 | Outpatient (BNVA) | payer MEDICARE, SELFPAY | PROVIDERS: PCP Nurse Practitioner; Referring Provider Nurse Practitioner; Visit Provider Nurse Practitioner Gerontology | DX: N39.46 Mixed incontinence (principal); Z87.440 Personal history of urinary (tract) infections; R60.0 Localized edema | CPT/HCPCS: 99214 ==

== ENCOUNTER → 2024-09-09 09:56 | Outpatient (BNVA) | payer MEDICARE, SELFPAY | PROVIDERS: PCP Nurse Practitioner; Referring Provider Nurse Practitioner; Visit Provider Psychiatry & Neurology Neurology | DX: G30.9 Alzheimer's disease, unspecified (principal); F02.818 Dementia in other diseases classified elsewhere, unspecified severity, with other behavioral disturbance; I10 Essential (primary) hypertension | CPT/HCPCS: 99215 ==

== ENCOUNTER → 2024-11-20 10:00 | Outpatient (BNVA) | payer MEDICARE, SELFPAY | PROVIDERS: PCP Nurse Practitioner; Referring Provider Nurse Practitioner; Visit Provider Nurse Practitioner Adult Health | DX: G30.9 Alzheimer's disease, unspecified (principal); F02.818 Dementia in other diseases classified elsewhere, unspecified severity, with other behavioral disturbance; I10 Essential (primary) hypertension | CPT/HCPCS: 99215 ==

== ENCOUNTER → 2024-12-08 10:00 | Outpatient (BNVA) | payer MEDICARE, SELFPAY | PROVIDERS: PCP Nurse Practitioner; Referring Provider Nurse Practitioner; Visit Provider Nurse Practitioner Gerontology | DX: N39.46 Mixed incontinence (principal); Z87.440 Personal history of urinary (tract) infections; G30.9 Alzheimer's disease, unspecified; R39.9 Unspecified symptoms and signs involving the genitourinary system | CPT/HCPCS: 99214; 51798 ==